=== PATIENT | male | born 1955 | race Hispanic/Latino ===

== ENCOUNTER 2023-12-30 10:19 | Emergency (ER) | payer OTHER, SELFPAY ==
[2023-12-30] VITALS (10 sets, daily range): BP systolic 126–158; BP diastolic 64–85; PULSE 52–65; RESP 16–22; TEMP 36.8–37; O2SAT 92–100; BMI 28.3
--- NOTE | 2023-12-30 10:33 | DI.CT.S_ITS ---
PROCEDURE: CT ANGIO HEAD AND NECK INDICATIONS: right arm numbness TECHNIQUE: After the administration of intravenous contrast, 1 mm thick sections acquired from the aortic arch through the [place]. 3-dimensional jztgbfd-opdpxgdif-fkwvhihiaq (MIP) and/or volume rendering reformats were acquired of the central intracranial vasculature and neck separately. For radiation dose reduction, the following was used: automated exposure control, adjustment of mA and/or kV according to patient size. COMPARISON: CT head December 30, 2023. FINDINGS: Image quality: Diagnostic. HEAD CT ANGIOGRAPHY: Anterior circulation: Intracranial internal carotid arteries are normal in flow. Atherosclerotic calcifications noted in the cavernous and clinoid segments of the internal carotid arteries bilaterally which causes mild stenosis of the vessels. The flow within the paired anterior cerebral arteries is normal and symmetric. The flow within the middle cerebral arteries is normal and symmetric. The anterior communicating artery is seen. No aneurysms are seen. Posterior circulation: Visualized portions of the vertebral arteries demonstrate normal caliber, and join to form a normal appearing basilar artery. Flow within the posterior cerebral arteries is normal and symmetric. No aneurysms are seen. NECK CT ANGIOGRAPHY: Carotid system: The great vessels demonstrate a conventional anatomy as they arise from the aortic arch. The origins of the common carotid arteries appear patent. Scattered atherosclerotic calcifications in the bilateral chronic carotid arteries causing mild multifocal stenosis. Right internal carotid artery endovascular stent. Soft and dense calcified atherosclerotic plaque in the origin of the right internal carotid artery which causes high-grade, greater than 90% stenosis to near occlusion of the vessel. Soft and calcified atherosclerotic plaque in the origin of the left internal carotid artery which causes mild, less than 50% stenosis of the vessel. Posterior circulation: Soft and calcified atherosclerotic plaque in the origins of the bilateral internal carotid arteries which causes high-grade stenosis of the vessels. Scattered soft and calcified atherosclerotic plaque in the V2 segments of the bilateral vertebral arteries which causes multifocal mild stenoses. Mild atherosclerotic calcification in the V3 and V4 segments of the left vertebral artery which causes mild multifocal stenosis. Normal flow in the basilar artery. Basilar artery is fully patent.. Soft tissues: Visualized neck soft tissues demonstrate no suspicious abnormalities. Bones: No suspicious bony lesions. Visualized cervical spine appears normally aligned. Spine degenerative disc disease and facet arthropathy. IMPRESSION: No large vessel occlusion,, vascular dissection or aneurysm. High-grade, greater than 90% stenosis to near occlusion of the origin of the right internal carotid artery. Mild, less than 50% stenosis of the origin of the left internal carotid artery. High-grade stenosis of the origins of the bilateral vertebral arteries. Any quantitative measurements of stenosis were performed using NASCET criteria. Dictated by: Sol Camp MD, PhD on 12/30/2023 at 11:14 Approved by: Sol Camp MD, PhD on 12/30/2023 at 11:24
--- NOTE | 2023-12-30 10:33 | DI.CT.S_ITS ---
PROCEDURE: CT HEAD/BRAIN WO CON INDICATIONS: right arm numbness TECHNIQUE: Noncontrast 4.5 mm thick angled axial sections acquired from the foramen magnum to the vertex, with coronal and sagittal reformats. For radiation dose reduction, the following was used: automated exposure control, adjustment of mA and/or kV according to patient size. COMPARISON: None. FINDINGS: Image quality: Diagnostic. CSF spaces: Basal cisterns are patent. No extra-axial fluid collections. The ventricles are symmetric in size and shape. Brain: No intracranial bleeds or masses. 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 There is cerebral volume loss for age, with resultant ventricular and sulcal prominence. There are periventricular and deep white matter chronic small vessel ischemic changes. There is intracranial internal carotid artery and vertebral artery atherosclerosis. Skull and face: Calvarium and visualized facial bones appear intact, without suspicious lesions. Sinuses: Visualized sinuses and mastoids are clear. IMPRESSION: No acute intracranial pathology. Dictated by: Sol Camp MD, PhD on 12/30/2023 at 11:12 Approved by: Sol Camp MD, PhD on 12/30/2023 at 11:14
--- NOTE | 2023-12-30 10:36 | ED.NEUROSD ---
HPI - Neuro Symptoms/Deficit General Chief Complaint: Neuro Symptoms/Deficit Stated Complaint: R Arm Numbness, Headache Time Seen by Provider: 12/30/23 10:33 Source: patient Mode of arrival: Ambulatory History of Present Illness HPI Narrative: Patient is a 68-year-old male history of TIA coronary artery disease with stent hypertension hyperlipidemia on clopidogrel presents today with ongoing right arm numbness. He reports it started yesterday around noon to his whole arm. He previously had some numbness in his hand and fingertips when he was bowling but now it is his whole arm. He denies any sort of weakness. No facial droop difficulty speaking or vision changes. He denies any sort of chest pain or palpitations. When asked about his previous TIA chief does not remember his symptoms of that but in 2007 he did have chest pain with a cardiac stent placed. He has also had a left carotid endarterectomy. On Anticoagulants: No Related Data Home Medications Medication Instructions Recorded Confirmed ASPIRIN (Aspir-Low) 81 mg PO QDAY ##0 06/21/12 Fish Oil 1,000 mg PO BID ##0 06/21/12 MULTIVITAMIN 1 cap PO QDAY ##0 06/21/12 lisinopril 10 mg tablet 10 mg PO QDAY ##0 06/21/12 metoprolol tartrate 25 mg tablet 25 mg PO BID ##0 06/21/12 Previous Rx's Medication Instructions Recorded clopidogrel 75 mg tablet (Plavix) 75 mg PO DAILY #60 tabs 12/30/23 Allergies Allergy/AdvReac Type Severity Reaction Status Date / Time No Known Drug Allergies Allergy Verified 12/30/23 10:27 Review of Systems Hematologic/Lymphatic On Anticoagulants: No Patient History Social History Smoking Status: Never smoker Smoking Status: Never smoker alcohol intake frequency: 3 or more drinks per day Substance Use Type: does not use Exam Initial Vital Signs Initial Vital Signs: Vital Signs Temperature 98.3 F 12/30/23 10:22 Pulse Rate 53 L 12/30/23 10:22 Respiratory Rate 16 12/30/23 10:22 Blood Pressure 152/70 H 12/30/23 10:22 Pulse Oximetry 98 12/30/23 10:22 Oxygen Delivery Method Room Air 12/30/23 10:22 GENERAL: Alert pleasant well-appearing 60-year-old and in no acute distress. HEENT: Head atraumatic,EOMI, pupils reactive, face symmetric, moist mucous membranes CARDIOVASCULAR: Regular rate and rhythm without murmurs, rubs or gallops. RESPIRATORY: Breath sounds equal bilaterally, no wheezes rales or rhonchi. ABDOMEN: Soft, nontender. Normoactive bowel sounds all 4 quadrants. No guarding or rebound. EXTREMITIES: Normal range of motion, no clubbing or edema. Neurovascularly intact NEUROLOGICAL: Alert and oriented x4.Normal gait and speech. Cranial nerves II through XII grossly intact. Good fephrc-ws-jbif, good kfkp-el-qxjz, strength equal bilaterally, no dysarthria or aphasia, sensation in tact to soft touch bilaterally, no visual changes, no facial droop SKIN: Warm, dry, no laceration, no petechiae, no rashes or lesions. Scores ABCD2 Age >= 60 years: yes Initial BP. Either SBP >= 140 or DBP >= 90.: yes Clinical features of the TIA: other symptoms Duration of symptoms: >= 60 minutes History of diabetes: no ABCD2 Score: 4 NIH Stroke Scale Level of Conciousness: Alert, keenly responsive Ask month/age: Answers both questions correctly. Open/close eyes, close hand: Performs both tasks correctly Best gaze horizontal: Normal Visual gil: No visual loss Facial palsy: Normal symetrical movement Left arm drift: No drift for full 10 sec Right arm drift: No drift for full 10 sec Left leg drift: No drift for full 5 sec Right leg drift: No drift for full 5 sec Limb ataxia: Absent Sensory on face/arms/legs: Mild to moderate sensory loss, can tell touch Best language: No aphasia, normal Dysarthria: Normal Extinction or inattention: No abnormality Total NIH Stroke scale score: 1 Course Orders Ordered: ED Orders 12/30/23 10:33 CT angio head and neck Stat CT head/brain wo con Stat EKG-12 Lead Stat 12/30/23 10:47 Complete Blood Count AUTO DIFF Stat Comprehensive Metabolic Panel Stat Ethanol (ETOH) Stat PTT Partial Thromboplastin Patrick Stat Prothrombin Time INR Stat Troponin & CK Cardiac Panel Stat Urinalysis and Microscopic Stat Urine Drug Screen, Rapid Stat 12/30/23 11:00 COVID19 -Nasal RAPID Stat 12/30/23 12:01 MR head/brain wo con Stat Discontinued Medications Clopidogrel Bisulfate (Clopidogrel 75 Mg Tablet) 300 mg PO NOW ONE Stop: 12/30/23 12:16 Last Admin: 12/30/23 12:29 Dose: 300 mg Documented By: TESSIE Vital Signs Vital signs: Vital Signs - 8 hr 12/30/23 10:44 12/30/23 10:45 12/30/23 10:45 Temperature Pulse Rate 53 L 55 L Respiratory Rate Blood Pressure 137/68 Pulse Oximetry 100 97 12/30/23 11:00 12/30/23 11:30 12/30/23 13:14 Temperature Pulse Rate 58 L 59 L 56 L Respiratory Rate Blood Pressure Pulse Oximetry 95 92 93 12/30/23 13:30 12/30/23 13:45 12/30/23 13:45 Temperature Pulse Rate 52 L 53 L Respiratory Rate 17 19 Blood Pressure 126/64 Pulse Oximetry 96 95 12/30/23 14:00 12/30/23 14:00 12/30/23 15:30 Temperature Pulse Rate 52 L 65 Respiratory Rate 22 Blood Pressure 148/76 H Pulse Oximetry 96 96 12/30/23 15:30 Temperature 98.6 F Pulse Rate Respiratory Rate 16 Blood Pressure 158/85 H Pulse Oximetry MDM - Neuro Symptoms/Deficit Lab Data 12/30/23 10:47 12/30/23 10:47 Labs: Lab Results 12/30/23 12/30/23 12/30/23 Range/Units 10:47 10:47 11:00 WBC 7.5 (4.5-11.0) X10^3/uL RBC 4.44 L (4.5-5.9) X10^6/uL Hgb 13.4 L (13.5-17.5) g/dL Hct 39.5 L (41-53) % MCV 89.1 (80-100) fL MCH 30.1 (26-34) PG MCHC 33.8 (30-36) % RDW 13.8 (11.6-14.8) % Plt Count 209 (150-400) X10^3/uL Neut % (Auto) 72.3 (50-75) % Lymph % (Auto) 17.6 L (25-40) % [place] % (Auto) 5.7 (3-14) % Eos % (Auto) 3.7 (2-4) % Baso % (Auto) 0.7 (0-2) % Neut # (Auto) 5400 (3809-0559) /uL Lymph # (Auto) 1300 (0886-2685) /uL [place] # (Auto) 400 (0-900) /uL Eos # (Auto) 300 (0-450) /uL Baso # (Auto) 0 (0-100) /uL PT 10.6 (9.4-12.5) SECONDS INR 0.9 (0.9-1.3) APTT 37 H (25.1-36.5) SECONDS Sodium 134 L (137-145) mmol/L Potassium 4.4 (3.4-5.1) mmol/L Chloride 101 (98-107) mmol/L Carbon Dioxide 26 (22-32) mmol/L BUN 17 (9-20) mg/dL Creatinine 0.94 (0.66-1.25) mg/dL Estimated GFR > 60 (>60) mL/min BUN/Creatinine Ratio 18.1 (6-22) Glucose 224 H (80-110) mg/dL Calcium 8.9 (8.4-10.2) mg/dL Total Bilirubin 0.7 (0.2-1.3) mg/dL AST 23 (17-59) IU/L ALT 16 (<50) IU/L Alkaline Phosphatase 60 (38-126) U/L Total Creatine Kinase 67 (55-170) U/L Troponin I < 0.012 (0.01-0.034) ng/mL Total Protein 7.5 (6.3-8.2) g/dL Albumin 4.4 (3.5-5.0) g/dL Globulin 3.1 (1.7-4.1) g/dL Albumin/Globulin Ratio 1.4 (1.0-2.8) Urine Color Yellow Urine Appearance Clear Urine pH 6.0 Normal (4.5-8.0) Ur Specific [place] <=1.005 (1.000-1.035) Urine Protein Negative (Negative) Urine Glucose (UA) 2+ H (Negative) g/dL Urine Ketones Negative (NEGATIVE) Urine Occult Blood Negative (Negative) Urine Nitrate Negative (Negative) Urine Bilirubin Negative (NEGATIVE) Urine Urobilinogen 0.2 (0.2) E.U./dL Ur Leukocyte Esterase Negative (NEGATIVE) Urine RBC None seen (0-5/HPF) Urine WBC None seen (0-5/HPF) Ur Squamous Epith Cells None seen (0-5/HPF) Urine Bacteria None seen (None) Ur Culture Indicated? Cult not indicated Vol Urine Centrifuged 10ml (spun) U Opiates 300ng/mL cut Negative (Negative) Ur Oxycodone Screen Negative (Negative) Urine Methadone Screen Negative (Negative) Ur Barbiturates Screen Negative (Negative) U Tricyclic Antidepress Negative (Negative) Ur Phencyclidine Scrn Negative (Negative) Ur Amphetamines Screen Negative (Negative) U Methamphetamines Scrn Negative (Negative) Ur MDMA Scrn (Ecstasy) Negative (Negative) U Benzodiazepines Scrn Negative (Negative) Urine Cocaine Screen Negative (Negative) U Marijuana (THC) Screen Positive H (Negative) Urine Specific [place] Normal (Normal) Ethyl Alcohol < 10 ( - 10) mg/dL Ur Creatinine Normal (Normal) SARS-CoV-2 (PCR) Negative (Negative) Point of Care Testing Glucose POC [address] scan - head: Radiologist's Impression: PROCEDURE: CT HEAD/BRAIN WO CON INDICATIONS: right arm numbness TECHNIQUE: Noncontrast 4.5 mm thick angled axial sections acquired from the foramen magnum to the vertex, with coronal and sagittal reformats. For radiation dose reduction, the following was used: automated exposure control, adjustment of mA and/or kV according to patient size. COMPARISON: None. FINDINGS: Image quality: Diagnostic. CSF spaces: Basal cisterns are patent. No extra-axial fluid collections. The ventricles are symmetric in size and shape. Brain: No intracranial bleeds or masses. 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 There is cerebral volume loss for age, with resultant ventricular and sulcal prominence. There are periventricular and deep white matter chronic small vessel ischemic changes. There is intracranial internal carotid artery and vertebral artery atherosclerosis. Skull and face: Calvarium and visualized facial bones appear intact, without suspicious lesions. Sinuses: Visualized sinuses and mastoids are clear. IMPRESSION: No acute intracranial pathology. Dictated by: Sol Camp MD, PhD on 12/30/2023 at 11:12 CTA - brain/neck: Radiologist's Impression: PROCEDURE: CT ANGIO HEAD AND NECK INDICATIONS: right arm numbness TECHNIQUE: After the administration of intravenous contrast, 1 mm thick sections acquired from the aortic arch through the [place]. 3-dimensional hjncyhj-zzoyybgwn-ncfqhgeggm (MIP) and/or volume rendering reformats were acquired of the central intracranial vasculature and neck separately. For radiation dose reduction, the following was used: automated exposure control, adjustment of mA and/or kV according to patient size. COMPARISON: CT head December 30, 2023. FINDINGS: Image quality: Diagnostic. HEAD CT ANGIOGRAPHY: Anterior circulation: Intracranial internal carotid arteries are normal in flow. Atherosclerotic calcifications noted in the cavernous and clinoid segments of the internal carotid arteries bilaterally which causes mild stenosis of the vessels. The flow within the paired anterior cerebral arteries is normal and symmetric. The flow within the middle cerebral arteries is normal and symmetric. The anterior communicating artery is seen. No aneurysms are seen. Posterior circulation: Visualized portions of the vertebral arteries demonstrate normal caliber, and join to form a normal appearing basilar artery. Flow within the posterior cerebral arteries is normal and symmetric. No aneurysms are seen. NECK CT ANGIOGRAPHY: Carotid system: The great vessels demonstrate a conventional anatomy as they arise from the aortic arch. The origins of the common carotid arteries appear patent. Scattered atherosclerotic calcifications in the bilateral chronic carotid arteries causing mild multifocal stenosis. Right internal carotid artery endovascular stent. Soft and dense calcified atherosclerotic plaque in the origin of the right internal carotid artery which causes high-grade, greater than 90% stenosis to near occlusion of the vessel. Soft and calcified atherosclerotic plaque in the origin of the left internal carotid artery which causes mild, less than 50% stenosis of the vessel. Posterior circulation: Soft and calcified atherosclerotic plaque in the origins of the bilateral internal carotid arteries which causes high-grade stenosis of the vessels. Scattered soft and calcified atherosclerotic plaque in the V2 segments of the bilateral vertebral arteries which causes multifocal mild stenoses. Mild atherosclerotic calcification in the V3 and V4 segments of the left vertebral artery which causes mild multifocal stenosis. Normal flow in the basilar artery. Basilar artery is fully patent.. Soft tissues: Visualized neck soft tissues demonstrate no suspicious abnormalities. Bones: No suspicious bony lesions. Visualized cervical spine appears normally aligned. Spine degenerative disc disease and facet arthropathy. IMPRESSION: No large vessel occlusion,, vascular dissection or aneurysm. High-grade, greater than 90% stenosis to near occlusion of the origin of the right internal carotid artery. Mild, less than 50% stenosis of the origin of the left internal carotid artery. High-grade stenosis of the origins of the bilateral vertebral arteries. Any quantitative measurements of stenosis were performed using NASCET criteria. Dictated by: Sol Camp MD, PhD on 12/30/2023 at 11:14 Brain MRI: Radiologist's Impression: PROCEDURE: MR HEAD/BRAIN WO CON INDICATIONS: right numbness TECHNIQUE: Non-contrast axial T1 spin echo, axial T2 fast spin echo, sagittal and axial FLAIR, coronal T2 fast spin echo, axial gradient echo, axial diffusion and ADC through the brain. COMPARISON: [facility], CT, CT HEAD/BRAIN WO CON, 12/30/2023, 10:56. FINDINGS: Image quality: Excellent. CSF spaces: Ventricles appear symmetric in size and shape. Basal cisterns are patent. No extra-axial fluid collections. Brain: No intracranial bleeds or mass effects. There is cerebral volume loss for age. There are periventricular and deep white matter chronic small vessel ischemic changes. Small old right lacunar infarct. Brainstem appears normal. Diffusion-weighted images show no acute infarct. No chronic ischemic insults. Normal intravascular flow voids are present. Skull and face: Calvarial bone marrow is normal in signal. Orbits are normal. Sinuses: Sinuses and mastoids are clear. IMPRESSION: No acute or subacute infarct. No acute intracranial abnormalities. Age-appropriate global volume loss and chronic microvascular ischemic changes. Dictated by: Vikram Fonseca M.D. on 12/30/2023 at 14:38 Approved by: Vikram Fonseca M.D. on 12/30/2023 at 14:4 ECG Data Attestation: I personally reviewed and interpreted this ECG as follows: Prior ECG tracings: not available for review Interpretation: Normal sinus rhythm rate 51 WA interval 170 QRS 104 QTC 383 Q-wave noted in inferior leads only 3 and AVF no ischemic changes no priors to compare MDM Narrative Medical decision making narrative: Patient 68-year-old male presents today with numbness in his right arm. Last known well was yesterday at noon. He has no weakness and no other focal deficits. He has not a code stroke no large vessel occlusion signs and NIH stroke scale is 0. Imaging has been reviewed noncontrast head CT does not show any acute intracranial hemorrhage CT angio does show 90% occlusion of the right internal carotid and 50% on the left. He also has high-grade stenosis of bilateral vertebral arteries. 12:00pm Dr. Chase stroke neurology, updated patient's symptoms test results. At this time right internal carotid artery is asymptomatic with right arm those symptoms not correlate his left internal carotid is 50%. Recommends dual antiplatelet therapy with aspirin and Plavix for 21 days and an MRI. Blood work has been reviewed: Overall reassuring WBC 7.5 hemoglobin 13.4 hematocrit 39.5, platelets 209, INR 0 point 9 PTT 37, sodium 134, potassium 4.4, chloride 101, carbon dioxide 26, BUN 17, creatinine 0.9, troponin negative MRI is negative for acute or subacute stroke At this time patient received Plavix here in the ED discussion with Dr. García seems reasonable to be discharged home on aspirin and Plavix. Needs dual antiplatelet for 21 days. Strict return precautions and need for follow-up with PCP have been addressed with both patient and . They understand. Discharge Plan Departure Patient Disposition: Home Clinical Impression: Transient cerebral ischemia, Carotid stenosis, right Instructions: DI for Stroke-Ischemic, DI for Transient Ischemic Attack Activity Restrictions/Additional Instructions: *You have been diagnosed with TIA *What to do: At this time please follow-up with your primary care provider. Right carotid artery is stenosed and needs an endarterectomy. Not emergently today. This is unlikely the cause of his symptoms today as well. MRI did not show stroke today, however high risk for stroke and heart attack Please work with your doctor in regards to getting your glucose and diabetes under control *Continue to take medications as directed Aspirin 81 mg daily x 21 days then stop Plavix 75 mg daily *Follow up with your primary care provider in 2-3 days or call [phone] *Return to ER if you should have increasing weakness facial droop difficulty speaking chest pain or any new, worsening or concerning symptoms Prescriptions: New clopidogrel [Plavix] 75 mg tablet 75 mg PO DAILY Qty: 60 0RF No Action ASPIRIN (Aspir-Low) 81 mg PO QDAY Qty: 0 lisinopril 10 MG tablet 10 mg PO QDAY Qty: 0 Fish Oil 1,000 mg PO BID Qty: 0 MULTIVITAMIN 1 cap PO QDAY Qty: 0 metoprolol tartrate 25 MG tablet 25 mg PO BID Qty: 0 Stand Alone Forms: Patient Portal/API
--- NOTE | 2023-12-30 10:54 | PC.NURSE ---
R. arm pain. POLANCO yesterday. Previous hx of right hand pain d/t jacki
[2023-12-30 10:59] LABS: Appearance Urine UA CLEAR; Bilirubin Urine UA NEGATIVE (NEGATIVE); Color Urine UA YELLOW; Glucose Urine UA 2+ g/dL (Negative); Ketones Urine UA NEGATIVE (NEGATIVE); Leukocyte Esterase Urine UA NEGATIVE (NEGATIVE); Nitrite Urine UA NEGATIVE (Negative); Occult Blood Urine UA NEGATIVE (Negative); Protein Urine UA NEGATIVE (Negative); Specific Gravity Urine UA <=1.005 (1.000-1.035); Urobilinogen Urine UA 0.2 E.U./dL (0.2)
[2023-12-30 11:06] LABS: Bacteria Urine None Seen; Culture Indicated Urine Cult Not Indicated; RBC Urine None Seen (0-5/HPF); Squamous Epithelial Cell Urine None Seen (0-5/HPF); UR Morphine/Opiate cutoff 300 Negative (Negative); Ur Creatinine Normal (Normal); Ur Specific Gravity Normal (Normal); Urine Amphetamines Negative (Negative); Urine Barbiturates Negative (Negative); Urine Benzodiazepines Negative (Negative); Urine Cocaine Negative (Negative); Urine MDMA Negative (Negative); Urine Methadone Negative (Negative); Urine Methamphetamines Negative (Negative); Urine Oxycodone Negative (Negative); Urine Phencyclidine Negative (Negative); Urine Tetrahydrocannabinol Positive (Negative); Urine Tricyclic Antidepressant Negative (Negative); Urine Volume 10mL (spun); Urine pH Normal (Normal); WBC Urine None Seen (0-5/HPF)
[2023-12-30 11:07] LABS: INR 0.9 (0.9-1.3); Prothrombin Time 10.6 SECONDS (9.4-12.5)
[2023-12-30 11:08] LABS: Add Manual Diff / Slide Review NO; Basophils Absolute Auto 0 /uL (0-100); Basophils Percent Auto 0.7 % (0-2); Eosinophils Absolute Auto 300 /uL (0-450); Eosinophils Percent Auto 3.7 % (2-4); Hematocrit 39.5 % (41-53); Hemoglobin 13.4 g/dL (13.5-17.5); Lymphocytes Absolute Auto 1300 /uL (1100-4500); Lymphocytes Percent Auto 17.6 % (25-40); Mean Corpuscular HGB Conc 33.8 % (30-36); Mean Corpuscular Hemoglobin 30.1 PG (26-34); Mean Corpuscular Volume 89.1 fL (80-100); Monocytes Absolute Auto 400 /uL (0-900); Monocytes Percent Auto 5.7 % (3-14); Neutrophils Absolute Auto 5400 /uL (1500-7000); Neutrophils Percent Auto 72.3 % (50-75); Platelet Count 209 X10^3/uL (150-400); Red Blood Cell Count 4.44 X10^6/uL (4.5-5.9); Red Cell Distribution Width 13.8 % (11.6-14.8); White Blood Cell Count 7.5 X10^3/uL (4.5-11.0)
[2023-12-30 11:10] LABS: Alanine Aminotransferase 16 IU/L (<50); Albumin 4.4 g/dL (3.5-5.0); Albumin Globulin Ratio 1.4 (1.0-2.8); Alkaline Phosphatase 60 U/L (38-126); Aspartate Aminotransferase 23 IU/L (17-59); BUN Creatinine Ratio 18.1 (6-22); Bilirubin Total 0.7 mg/dL (0.2-1.3); Blood Urea Nitrogen 17 mg/dL (9-20); Calcium 8.9 mg/dL (8.4-10.2); Carbon Dioxide 26 mmol/L (22-32); Chloride 101 mmol/L (98-107); Creatine Kinase 67 U/L (55-170); Estimated Glomerular Filt Rate > 60 mL/min (>60); Ethanol (ETOH) < 10 mg/dL; Globulin 3.1 g/dL (1.7-4.1); Glucose 224 mg/dL (80-110); HEMOLYSIS 16 (0-50); PTT Partial Thromboplastin Tim 37 SECONDS (25.1-36.5); Potassium 4.4 mmol/L (3.4-5.1); Sodium 134 mmol/L (137-145); Total Protein 7.5 g/dL (6.3-8.2)
[2023-12-30 11:21] LABS: Troponin I < 0.012 ng/mL (0.01-0.034)
[2023-12-30 11:29] LABS: COVID19 -Nasal RAPID Negative (Negative)
--- NOTE | 2023-12-30 12:01 | DI.MRI.S_ITS ---
PROCEDURE: MR HEAD/BRAIN WO CON INDICATIONS: right numbness TECHNIQUE: Non-contrast axial T1 spin echo, axial T2 fast spin echo, sagittal and axial FLAIR, coronal T2 fast spin echo, axial gradient echo, axial diffusion and ADC through the brain. COMPARISON: [facility], CT, CT HEAD/BRAIN WO CON, 12/30/2023, 10:56. FINDINGS: Image quality: Excellent. CSF spaces: Ventricles appear symmetric in size and shape. Basal cisterns are patent. No extra-axial fluid collections. Brain: No intracranial bleeds or mass effects. There is cerebral volume loss for age. There are periventricular and deep white matter chronic small vessel ischemic changes. Small old right lacunar infarct. Brainstem appears normal. Diffusion-weighted images show no acute infarct. No chronic ischemic insults. Normal intravascular flow voids are present. Skull and face: Calvarial bone marrow is normal in signal. Orbits are normal. Sinuses: Sinuses and mastoids are clear. IMPRESSION: No acute or subacute infarct. No acute intracranial abnormalities. Age-appropriate global volume loss and chronic microvascular ischemic changes. Dictated by: Vikram Fonseca M.D. on 12/30/2023 at 14:38 Approved by: Vikram Fonseca M.D. on 12/30/2023 at 14:43
[2023-12-30] MEDS: CLOPIDOGREL 75 MG TABLET 300 MG PO (12:29)
--- NOTE | 2023-12-30 15:02 | EKG_ITS ---
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
--- NOTE | 2023-12-30 15:35 | PC.NURSE ---
reassess; no change
== END 2023-12-30 15:48 | disposition home or self-care (01) ==
PROVIDERS: Emergency Provider Emergency Medicine
DX: I65.21 Occlusion and stenosis of right carotid artery (principal); Z86.73 Personal history of transient ischemic attack (TIA), and cerebral infarction without residual deficits; Z79.899 Other long term (current) drug therapy; R29.701 NIHSS score 1; Z20.822 Contact with and (suspected) exposure to COVID-19
CPT/HCPCS: 36415; 70450; 70496; 70498; 70551; 80053; 80305; 80320; 81001; 82550; 82962; 84484; 85025; 85610; 85730; 87635; 93005; 99284; Q9967